=== PATIENT | male | born 1955 | race Caucasian/White ===

== ENCOUNTER 2023-12-08 13:41 | Emergency (ER) | payer MEDICARE, OTHER ==
[2023-12-08] MEDS: Lidocaine 1% 5 ML VIAL INJECT ONE (14:40)
[2023-12-08] MEDS: Bacitracin Oint 1 GM U/D Packet TOP ONE (14:40)
[2023-12-08] MEDS: Diphtheria,Pertussis(Acell),Tetanus Vaccine 0.5 ML Syringe IM ONE (14:41)
== END 2023-12-08 15:15 | disposition home or self-care (01) ==
LOC: DL.ED 13:41
DX: S61.210A Laceration without foreign body of right index finger without damage to nail, initial encounter (principal); Z23 Encounter for immunization; W26.8XXA Contact with other sharp object(s), not elsewhere classified, initial encounter
CPT/HCPCS: 12001; 90471; 90715; 99282; A9270; J3490

== ENCOUNTER 2024-03-12 05:28 | Emergency (ER) | payer MEDICARE, OTHER ==
[2024-03-12] MEDS: Albuterol/Ipratropium 3.0-0.5 MG/3 ML Neb Soln NEB ONE ×2 (05:46→07:34)
[2024-03-12] MEDS: methylPREDNISolone Sodium Succinate 125 MG/2 ML SDV IVPUSH ONE (05:51)
[2024-03-12 05:52] LABS: O2 DELIVERY DEVICE NASAL CANNULA
[2024-03-12 05:53] LABS: BASOPHILS PERCENT AUTO 0.4 % (0.0-1.0); EOSINOPHILS PERCENT AUTO 0.6 % (1.0-3.0); HEMATOCRIT 53.1 % (40.0-54.0); HEMOGLOBIN 17.1 g/dL (14.0-18.0); LYMPHOCYTES PERCENT AUTO 11.4 % (20.5-50.1); MEAN CORPUSCULAR HGB CONC 32.2 g/dL (33.0-35.0); MEAN CORPUSCULAR VOLUME 99.3 fL (80-100); MONOCYTES PERCENT AUTO 8.3 % (2-8); NEUTROPHILS PERCENT AUTO 79.3 % (42.2-75.2); PLATELET COUNT,PLT 208 10^3/uL (150-450); RED BLOOD CELL COUNT 5.35 10^6/uL (4.6-6.2); WHITE BLOOD CELL COUNT,WBC 11.3 10^3/uL (5.0-10.0)
[2024-03-12] MEDS: Magnesium Sulfate/Water Premix 2 GM in Premix Bag 1 BAG IV ONE (05:55)
[2024-03-12 05:57] LABS: BASE EXCESS VENOUS 6.3 mmol/l ((-2)-(+3)); BICARBONATE,VENOUS 36 mmol/l (19-25); PH,VENOUS 7.31 (7.31-7.41); PO2 VENOUS 27 mmHg (35-42)
[2024-03-12 05:59] LABS: PCO2 VENOUS 74 mmHg (41-51)
[2024-03-12 06:15] LABS: A/G RATIO 0.9; ALANINE AMINOTRANSFERASE,ALT 21 U/L (16-63); ALBUMIN 3.4 g/dL (3.4-5.0); ALKALINE PHOSPHATASE 101 U/L (46-116); ASPARTATE AMNIOTRANSFERASE,AST 12 U/L (15-37); BILIRUBIN TOTAL 0.6 mg/dL (0.2-1.0); BLOOD UREA NITROGEN,BUN 15 mg/dL (7-18); BUN/CREATININE RATIO 17.2 (No establ ref range); CALCIUM 8.9 mg/dL (8.5-10.1); CARBON DIOXIDE,CO2 37 mmol/L (21-32); CHLORIDE,CL 98 mmol/L (98-107); CREATININE 0.87 mg/dL (0.70-1.30); GLUCOSE RANDOM 159 mg/dL (70-99); MAGNESIUM 2.1 mg/dL (1.8-2.4); PROTEIN TOTAL,TP 7.3 g/dL (6.4-8.2); SODIUM,NA 139 mmol/L (136-145)
[2024-03-12 06:16] LABS: B-TYPE NATRIURETIC PEPTIDE,BNP 108 pg/ml (0-100); ESTIMATED GFR 95 mL/min (>=60)
[2024-03-12 06:24] LABS: LACTIC ACID 1.2 mmol/L (0.4-2.0)
[2024-03-12] MEDS: Nicotine 21 MG/24 Hr Patch TRDERM ONE (06:58)
[2024-03-12] MEDS: Azithromycin 500 MG in Sodium Chloride 0.9% 250 ML IV ONE (07:25)
[2024-03-12] MEDS: cefTRIAXone 1 GM Vial IVPUSH ONE (07:25)
[2024-03-12 07:44] LABS: O2 DELIVERY DEVICE NASAL CANNULA
[2024-03-12 07:45] LABS: BASE EXCESS VENOUS 4.1 mmol/l ((-2)-(+3)); BICARBONATE,VENOUS 35 mmol/l (19-25); O2 SATURATION VENOUS 90.6 % (60-80); PO2 VENOUS 69 mmHg (35-42)
[2024-03-12 07:47] LABS: PCO2 VENOUS 85 mmHg (41-51); PH,VENOUS 7.24 (7.31-7.41)
[2024-03-12 08:47] LABS: BASE EXCESS VENOUS 3.5 mmol/l ((-2)-(+3)); BICARBONATE,VENOUS 35 mmol/l (19-25); O2 DELIVERY DEVICE BIPAP; O2 SATURATION VENOUS 91.4 % (60-80); PO2 VENOUS 74 mmHg (35-42)
[2024-03-12 08:48] LABS: PH,VENOUS 7.22 (7.31-7.41)
[2024-03-12 08:49] LABS: PCO2 VENOUS 88 mmHg (41-51)
== END 2024-03-12 11:41 ==
LOC: DL.ED 05:28
DX: J44.1 Chronic obstructive pulmonary disease with (acute) exacerbation (principal); I10 Essential (primary) hypertension; E11.9 Type 2 diabetes mellitus without complications; F17.210 Nicotine dependence, cigarettes, uncomplicated
CPT/HCPCS: 36415; 71045; 80053; 82803; 82947; 83605; 83735; 83880; 84484; 85025; 87428; 93005; 94660; 96365; 96367; 96375; 99285; A9270; J0456; J0696; J2919; J3475; J7050; J7620-GY